=== PATIENT | male | born 1990 | race Two or more races ===

== ENCOUNTER 2018-12-03 15:31 | Emergency (ER) | payer BC, MEDICAID ==
[2018-12-03 15:50] VITALS: BP 144/93
--- NOTE | 2018-12-03 16:15 | ER Document Report ---
ED Medical Screen (RME) - General Chief Complaint: Psych Problem Stated Complaint: LACK OF SLEEP/DEPRESSION Time Seen by Provider: 12/03/18 16:00 Primary Care Provider: LOAN ARTEAGA MD [Primary Care Provider] - Follow up as needed TRAVEL OUTSIDE OF THE [place] IN LAST 30 DAYS: No - HPI Notes: 12/03/18 16:13 Patient is a 28-year-old male with a history of autism, depression, and mental health disorder who presents emergency department with mother complaining of increase in his depression, irritability, restlessness, insomnia, and increased thoughts of self-harm. His symptoms began increasing over this past weekend. Patient does see a counselor regularly. He is otherwise eating and drinking without difficulty. He is urinating normally. No other concerns or complaints. No SI/HI or any active planing. Denies OLVERA, fever, neck pain, URI, CP, SOB, Abd pain, or rash. I have treated and performed a rapid initial assessment of this patient. A comprehensive ED assessment and evaluation of the patient, analysis of test results and completion of medical decision making process will be conducted by additional ED providers. PHYSICAL EXAMINATION: GENERAL: Well-appearing, well-nourished and in no acute distress. A&Ox4. Answers questions appropriately. LUNGS: Breath sounds clear to auscultation bilaterally and equal. No wheezes rales or rhonchi. HEART: Regular rate and rhythm without murmurs, rubs, gallops. - Related Data Allergies/Adverse Reactions: peanut [Peanut] Allergy (Verified 06/28/14 22:09) Past Medical History Renal/ Medical History: Denies: Hx Peritoneal Dialysis - Immunizations Hx Diphtheria, Pertussis, Tetanus Vaccination: Yes - 06/28/14 Physical Exam - Vital signs Vitals: Temp Pulse Resp BP Pulse Ox 98.2 F 91 16 144/93 H 98 12/03/18 15:49 12/03/18 15:49 12/03/18 15:49 12/03/18 15:49 12/03/18 15:49 Course - Vital Signs Vital signs: Temp Pulse Resp BP Pulse Ox 98.2 F 91 16 144/93 H 98 12/03/18 15:49 12/03/18 15:49 12/03/18 15:49 12/03/18 15:49 12/03/18 15:49 Doctor's Discharge - Discharge Referrals: LOAN ARTEAGA MD [Primary Care Provider] - Follow up as needed
--- NOTE | 2018-12-03 17:22 | ER Document Report ---
ED General - General Chief Complaint: Psych Problem Stated Complaint: LACK OF SLEEP/DEPRESSION Time Seen by Provider: 12/03/18 16:00 Primary Care Provider: LOAN ARTEAGA MD [Primary Care Provider] - Follow up as needed Notes: Patient is a 28-year-old male with history of autism that presents to the emergency department for chief complaint of insomnia, agitation and restlessness. Mother states that the patient's been more restless the last few days, and not getting much sleep particularly at night, he is been more depressed, but at this time of my examination he denies having any suicidal ideation or homicidal ideation, he has had intermittent times where he has been hearing "God speak to him", but denies that at this time. He states he feels a lot better now, and more calm, but his mother thinks he still is somewhat agitated, he is on Zoloft, has been on that for 9 months as well as clonidine, that he has been on for a very long time. He does have a counselor, which she sees on a regular basis. Past Medical History: Autism, anxiety Past Surgical History: Denies recent or major surgical history Social History: Lives at home with mother, denies alcohol, tobacco or drug use. Family History: Reviewed and noncontributory for presenting illness Allergies: Reviewed, see documented allergy list. REVIEW OF SYSTEMS: Other than noted above, the 12 point review of systems was reviewed with the patient and were negative, all pertinent findings are included in the HPI. PHYSICAL EXAMINATION: Vital signs reviewed, nursing noted reviewed. GENERAL: Well-appearing, well-nourished and in no acute distress. HEAD: Atraumatic, normocephalic. EYES: Eyes appear normal, sclera anicteric, conjunctiva are normal. ENT: Moist mucous membranes. NECK: Normal range of motion, supple without lymphadenopathy LUNGS: Breath sounds clear to auscultation bilaterally and equal. No wheezes rales or rhonchi. HEART: Regular rate and rhythm without murmurs EXTREMITIES: Nontender, good range of motion, no pitting or edema. NEUROLOGICAL: No focal neurological deficits. Moves all extremities spontaneously Motor and sensory grossly intact on exam. PSYCH: Somewhat bizarre affect, but appropriate, good eye contact SKIN: Warm, Dry, normal turgor, no rashes or lesions noted on exposed skin TRAVEL OUTSIDE OF THE [place] IN LAST 30 DAYS: No - Related Data Allergies/Adverse Reactions: peanut [Peanut] Allergy (Verified 06/28/14 22:09) Past Medical History - Social History Smoking Status: Never Smoker Family History: Reviewed & Not Pertinent Patient has suicidal ideation: No Patient has homicidal ideation: No Renal/ Medical History: Denies: Hx Peritoneal Dialysis - Immunizations Hx Diphtheria, Pertussis, Tetanus Vaccination: Yes - 06/28/14 Physical Exam - Vital signs Vitals: Temp Pulse Resp BP Pulse Ox 98.2 F 91 16 144/93 H 98 12/03/18 15:49 12/03/18 15:49 12/03/18 15:49 12/03/18 15:49 12/03/18 15:49 Course - Re-evaluation Re-evalutation: Patient seen and examined vital signs reviewed. Patient was evaluated and treated as appropriate for the patient's presenting symptoms and complaint, with consideration of any critical or life threatening conditions that may be associated with their obtained history and exam as noted above. Patient was treated with IM Geodon 10 mg The patient was re-evaluated and was stable Evaluation was most consistent with agitation, insomnia, patient at this time did not appear to be a imminent threat to himself or others, he denied any thoughts of self-harm on my history taking, mother feels comfortable with him b eing discharged home, he will be given a prescription for melatonin, and advised to follow-up with his psychiatric counselor. Plan of care was discussed with the patient at this point, after careful consideration I feel that that patient can be discharged from the emergency department, the patient was educated treatments and reasons to return to the emergency department based on their presumed diagnosis as noted above, they were advised to followup with a primary care physician in 2-3 days. Patient was agreeable to plan of care. *Note is created using voice recognition software and may contain spelling, syntax or grammatical errors. - Vital Signs Vital signs: Temp Pulse Resp BP Pulse Ox 98.2 F 91 16 144/93 H 98 12/03/18 15:49 12/03/18 15:49 12/03/18 15:49 12/03/18 15:49 12/03/18 15:49 Discharge - Discharge Clinical Impression: Agitation Insomnia Qualifiers: Insomnia type: unspecified Qualified Code(s): G47.00 - Insomnia, unspecified Condition: Stable Disposition: HOME, SELF-CARE Instructions: Insomnia ([facility]) Additional Instructions: Please follow-up with your counselor, and primary care physician, try taking the melatonin, 10 mg every evening to see if it will help with sleep and restlessness. Prescriptions: Melatonin 10 mg PO QHS #14 tablet Referrals: LOAN ARTEAGA MD [Primary Care Provider] - Follow up in 3-5 days
[2018-12-03] MEDS ORDERED: ZIPRASIDONE MESYLATE INJ/PF 20 MG SDV IM ONE (17:59)
== END 2018-12-03 18:35 | disposition home or self-care (01) ==
LOC: ER 15:31
DX: G47.00 Insomnia, unspecified (principal); R45.1 Restlessness and agitation; F84.0 Autistic disorder
CPT/HCPCS: 99283; 96372; J3486

== ENCOUNTER 2018-12-08 12:53 | Emergency (ER) | payer MEDICAID ==
[2018-12-08 13:33] LABS: ABSOLUTE EOSINOPHILS # (AUTO) 0.1 10^3/uL (0.0-0.6); ABSOLUTE MONOCYTES (AUTO) 0.7 10^3/uL (0.1-1.4); ABSOLUTE NEUT (AUTO) 4.7 10^3/uL (1.7-8.2); BASOPHILS % (AUTO) 0.5 % (0-2); EOSINOPHILS % (AUTO) 0.9 % (0-6); HEMATOCRIT 42.6 % (37.9-51.0); HEMOGLOBIN 14.7 g/dL (13.5-17.0); MEAN CORPUSCULAR HEMOGLOBIN 27.5 pg (27.0-33.4); MEAN CORPUSCULAR HGB CONC 34.6 g/dL (32.0-36.0); MEAN CORPUSCULAR VOLUME 79 fl (80-97); MONOCYTES % (AUTO) 10.6 % (3-13); PLATELET COUNT 211 10^3/uL (150-450); RED BLOOD COUNT 5.36 10^6/uL (4.35-5.55); RED CELL DISTRIBUTION WIDTH 13.9 % (11.5-14.0); TOTAL CELLS COUNTED % (AUTO) 100 %; WHITE BLOOD COUNT 6.5 10^3/uL (4.0-10.5)
[2018-12-08 13:49] LABS: ALANINE AMINOTRANSFERASE 89 U/L (21-72); ALBUMIN 4.2 g/dL (3.5-5.0); ALKALINE PHOSPHATASE 48 U/L (38-126); ANION GAP 7 (5-19); ASPARTATE AMINO TRANSFERASE 51 U/L (17-59); BILIRUBIN,DIRECT 0.1 mg/dL (0.0-0.4); BILIRUBIN,TOTAL 0.7 mg/dL (0.2-1.3); BLOOD UREA NITROGEN 15 mg/dL (7-20); CALCIUM 9.8 mg/dL (8.4-10.2); CARBON DIOXIDE 28 mmol/L (22-30); CHLORIDE 104 mmol/L (98-107); GLUCOSE 105 mg/dL (75-110); POTASSIUM 3.8 mmol/L (3.6-5.0); SODIUM 139.1 mmol/L (137-145); TOTAL PROTEIN 7.2 g/dL (6.3-8.2)
[2018-12-08 13:56] LABS: ACETAMINOPHEN < 10 ug/mL (10-30); ALCOHOL < 10 mg/dL (NONE DETECTED); SALICYLATE < 1.0 mg/dL (2.0-20.0)
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
[2018-12-08] MEDS: BENZTROPINE MESYLATE 1 MG TABLET PO SCH (15:20)
[2018-12-08 16:34] LABS: APPEARANCE,URINE CLEAR; BILIRUBIN,URINE NEGATIVE (NEGATIVE); COLOR,URINE YELLOW; GLUCOSE, URINE NEGATIVE (NEGATIVE); KETONES,URINE NEGATIVE (NEGATIVE); LEUKOCYTE ESTERASE,URINE NEGATIVE (NEGATIVE); NITRITE,URINE NEGATIVE (NEGATIVE); PROTEIN,URINE NEGATIVE (NEGATIVE); URINE SPECIFIC GRAVITY 1.013; UROBILINOGEN,URINE NEGATIVE mg/dL (<2.0)
[2018-12-08 16:56] LABS: URINE AMPHETAMINES SCREEN NEGATIVE; URINE BARBITURATES SCREEN NEGATIVE; URINE BENZODIAZEPINES SCREEN UNCONFIRMED POSITIVE; URINE COCAINE SCREEN NEGATIVE; URINE MARIJUANA (THC) SCREEN NEGATIVE; URINE METHADONE SCREEN NEGATIVE; URINE PHENCYCLIDINE SCREEN NEGATIVE
--- NOTE | 2018-12-08 18:13 | ER Document Report ---
ED Psych Disorder / Suicide - General Chief Complaint: Psych Problem Stated Complaint: PSYCH CONSULT Time Seen by Provider: 12/08/18 13:21 Primary Care Provider: LOAN ARTEAGA MD [Primary Care Provider] - Follow up as needed Notes: Patient was brought in for aggressive behavior. He has been very agitated and hallucinating and difficult to control. He was brought in by EMS who gave him 50 of Benadryl, 10 of Haldol, and 2 of Ativan IM. He was restrained on his transport here. Patient has a history of autism, depression, and other mental conditions. TRAVEL OUTSIDE OF THE [place] IN LAST 30 DAYS: No - Related Data Allergies/Adverse Reactions: peanut [Peanut] Allergy (Verified 06/28/14 22:09) Past Medical History - Social History Smoking Status: Never Smoker Frequency of alcohol use: None Drug Abuse: None Family History: Reviewed & Not Pertinent Patient has suicidal ideation: No Patient has homicidal ideation: Yes - see nursing note Psychiatric Medical History: Reports: Hx Depression - Immunizations Hx Diphtheria, Pertussis, Tetanus Vaccination: Yes - 06/28/14 Review of Systems - Review of Systems Notes: CONSTITUTIONAL : Denies fever. CARDIOVASCULAR: Denies chest pain. RESPIRATORY: Denies cough, chest congestion, or shortness of breath. GASTROINTESTINAL: Denies abdominal pain or nausea, vomiting, or diarrhea. GENITOURINARY: Denies difficulty or painful urinating, urinary frequency, blood in urine. Unable to obtain any further review of systems because patient unable or unwilling to cooperate. Also, patient is very sleepy at this time and difficult to get any information from him. -: Yes ROS unobtainable due to patient's medical condition Physical Exam - Vital signs Vitals: Temp Pulse Resp BP Pulse Ox 98.7 F 81 17 123/69 95 12/08/18 13:08 12/08/18 13:08 12/08/18 13:08 12/08/18 13:08 12/08/18 13:08 Interpretation: Normal Notes: PHYSICAL EXAMINATION: GENERAL: Well-appearing, at this time, patient is subdued and quiet and sleepy HEAD: Atraumatic, normocephalic. EYES: Pupils equal round and reactive to light, extraocular movements intact. ENT: oropharynx clear without exudates. Moist mucous membranes. NECK: Normal range of motion, supple. LUNGS: Breath sounds clear and equal bilaterally. HEART: Regular rate and rhythm without murmurs. ABDOMEN: Soft, nontender. No guarding or rebound. No masses. BACK: No tenderness throughout entire back. EXTREMITIES: Normal range of motion without pain. NEUROLOGICAL: Sleepy speech. Gait not tested. Grossly normal sensory, motor, and reflex exams. Awake, alert, and oriented x3. PSYCH: Too sleepy from medic to evaluate. SKIN: Warm, dry, no rashes. Course - Re-evaluation Re-evalutation: 12/08/18 18:13 Routine lab studies have been ordered and nothing significant shows there. Patient is being kept overnight to be reevaluated in the morning by [facility]. - Vital Signs Vital signs: Temp Pulse Resp BP Pulse Ox 97.8 F 83 18 146/80 H 100 12/10/18 09:51 12/10/18 09:51 12/10/18 09:51 12/10/18 09:51 12/10/18 09:51 - Laboratory Result Diagrams: 12/08/18 13:19 12/08/18 13:19 Laboratory results interpreted by me: 12/08/18 12/08/18 12/08/18 13:19 13:19 16:10 MCV 79 L ALT 89 H Urine Ascorbic Acid 40 H Salicylates < 1.0 L Acetaminophen < 10 L Discharge - Discharge Clinical Impression: Autism, Agitation Condition: Stable Disposition: PSYCH HOSP/UNIT Referrals: LOAN ARTEAGA MD [Primary Care Provider] - Follow up as needed
[2018-12-08] MEDS: DIVALPROEX SODIUM 250 MG TABLET.DR PO SCH (18:28)
[2018-12-08] MEDS: HALOPERIDOL 5 MG TABLET PO SCH (18:28)
--- NOTE | 2018-12-08 21:01 | EKG REPORT ---
SEVERITY:- NORMAL ECG - SINUS RHYTHM : Confirmed by: Taina Gutierrez MD 08-Dec-2018 21:00:31
[2018-12-08] MEDS ORDERED: PROPRANOLOL HCL 10 MG TABLET ONE (22:35)
[2018-12-08] MEDS: PROPRANOLOL HCL 10 MG TABLET PO SCH (22:40)
[2018-12-09] MEDS: BENZTROPINE MESYLATE 1 MG TABLET PO SCH (09:26)
[2018-12-09] MEDS: HALOPERIDOL 5 MG TABLET PO SCH ×2 (09:26→18:20)
[2018-12-09] MEDS: DIVALPROEX SODIUM 250 MG TABLET.DR PO SCH ×2 (09:26→18:22)
--- NOTE | 2018-12-09 09:57 | ER Document Report ---
Doctor's Note Notes: 12/09/18 09:54 Rounds: Chart reviewed and patient interviewed. Patient is being evaluated for aggressive behavior. The has a diagnosis of depression and likely bipolar disorder. Also autistic. Has been very active and not sleeping. Vital signs are all been normal. Lab studies essentially normal. Patient seems much calmer and quiet this morning. Answers questions appropriately. Patient appears to be medically stable for transfer or discharge. Eder Tijerina MD
--- NOTE | 2018-12-09 13:39 | PSYCHOLOGICAL NOTE ---
Psych Note - Psych Note Date seen by psych provider: 12/09/18 Time seen by psych provider: 07:34 - Chart review 0734. Re evaluation from 804- 807. Psych Note: Reason for Consult: 1st re evaluation, 24 Hour IVC Petition, no sleep, agitation, aggression and AH Contact Permissions: Mother Aleksandra [phone], Father Shon Candelario" [phone], [facility] Hermelindo Patient is a 28 year old male who is in the ED on a 24 Hour IVC Petition for psychosis (delusions of grandeur/roman catholic/God related), agitation, irritability and increased aggression with behaviors. He came in via EMS yesterday after [facility] [facility] and [facility] had been called out to the home Monday, Monday, yesterday (Monday) and then this morning due to agitation, aggression and hallucinations. He was seen 12/03/18 by medical staff after coming in voluntarily with mother for depression, irritability, restlessness, insomnia and increased thoughts of self harm. Today he stated he was in the ED because of "problems." He confirmed he has not been himself lately and stated "I never will be again." He commented "it is all the years and how I have lived." He admitted he was upset with is parents yesterday. he said "I did not want to be that way, I do love my family." He stated "we are all born full of evil." He talked about judaism, God and the Bible a lot. Patient was alert and oriented to self, person, place and situation. Mood was manic with congruent affect as evidenced by pressured speech, tangential thinking with flight of idea, and excessive energy. He was hyper-roman catholic. Review of chart and overnight documentation revealed patient had difficulty with taking his Propanolol last evening (2250), he held it in his hand, was asked to take it, said sure if you take off your clothes to the nurse and then pulled down his pants exposing himself. He seemed to be easily directed during that time. Documentation indicated he had restless sleep if any at all. Diagnosis: Insomnia 299.00 (F84.0) Autism Spectrum Disorder by History per mother 311 (F32.9) Unspecified Depressive Disorder by history per mother Impression/Plan: Recommendation to complete full IVC. Patient is more cooperative and able to be redirected today. He presented with delusions of grandeur (roman catholic/God oriented) and nimo (pressured speech, excessive energy, tangential thinking, flight of ideas). He has had significant behavioral changes over the past week (psychosis- hallucinations/having conversations with self, increased agitation and aggression) even with medication changes and providers involved. He has a diagnosis of Autism (high functioning) which causes concern for mood lability and impulse control while doing medication changes (which have not been effective to date). Consulted with Dr. Barajas regarding the management and care of patient. ED Physician in agreement with recommendations.
[2018-12-09] MEDS: PROPRANOLOL HCL 10 MG TABLET PO SCH (21:00)
[2018-12-10] MEDS: HALOPERIDOL 5 MG TABLET PO SCH (09:28)
[2018-12-10] MEDS: BENZTROPINE MESYLATE 1 MG TABLET PO SCH (09:28)
[2018-12-10] MEDS: DIVALPROEX SODIUM 250 MG TABLET.DR PO SCH (09:28)
[2018-12-10 09:53] VITALS: BP 146/80
--- NOTE | 2018-12-10 10:10 | ER Document Report ---
Doctor's Note Notes: 12/10/18 10:09 Patient seen and evaluated. He denies any active hallucinations currently. He states he is feeling much better. Patient came in with hallucinations of demons. His family is at bedside and agrees that he is improving but not back to his baseline. Patient will be admitted to [facility] for further psychiatric care. Him and family are in agreement with this plan of care. He is stable for transportation.
== END 2018-12-10 10:37 ==
LOC: ER 12:53
DX: F84.0 Autistic disorder (principal); F32.9 Major depressive disorder, single episode, unspecified; Z79.899 Other long term (current) drug therapy; R45.1 Restlessness and agitation; R44.3 Hallucinations, unspecified; Z91.010 Allergy to peanuts; R45.850 Homicidal ideations
CPT/HCPCS: 93005; 99285; 36415; 80307 ×4; 85025; 80053; 81001; 93010; J3490 ×5